=== PATIENT | male | born 1990 | race Hispanic/Latino ===

== ENCOUNTER 2017-04-11 00:06 | Emergency (ER) | payer BC ==
[2017-04-11] MEDS ORDERED: DiphenhydrAMINE 50 mg/ml Inj ONE (00:19)
[2017-04-11] MEDS ORDERED: Albuterol-Ipratrop 3 mg / 0.5 (3 ml) UD ONE (00:20)
[2017-04-11 00:23] VITALS: BMI 25.1
[2017-04-11] MEDS ORDERED: Albuterol-Ipratrop 3 mg / 0.5 (3 ml) UD INH STA ×2 (00:24→00:26)
[2017-04-11] MEDS ORDERED: Sodium Chloride 0.9% 1,000 ML IV STA (00:24)
[2017-04-11] MEDS ORDERED: DiphenhydrAMINE 50 mg/ml Inj IV STA (00:24)
[2017-04-11 00:26] VITALS: TEMP 98.9
[2017-04-11 00:45] LABS: BASO % 0.5 % (0.0-2.0); EOS # 0.1 K/uL (0.0-0.7); EOS % 0.8 % (0.0-4.0); HEMOGLOBIN 15.2 g/dL (12.0-18.0); LYMPH # 3.9 K/uL (1.0-4.3); LYMPH % 38.3 % (20.0-40.0); MEAN CELL VOLUME 90.3 fl (80.0-94.0); MEAN CORPUSCULAR HEMOGLOBIN 30.6 pg (27.0-31.0); MEAN CORPUSCULAR HGB CONC 33.9 g/dL (33.0-37.0); MEAN PLATELET VOLUME 7.2 fl (7.2-11.7); MONO # 0.6 K/uL (0.0-0.8); MONO % 5.6 % (0.0-10.0); NEUT # 5.5 K/uL (1.8-7.0); NEUT % 54.8 % (50.0-75.0); RBC 4.97 Mil/uL (4.40-5.90); RED CELL DISTRIBUTION WIDTH 12.8 % (11.5-14.5); WHITE BLOOD COUNT 10.1 K/uL (4.8-10.8)
[2017-04-11 00:57] LABS: ALB/GLOB RATIO 1.8 (1.0-2.1); ALT/SGPT 39 U/L (21-72); AST/SGOT 28 U/L (17-59); BLOOD UREA NITROGEN 16 mg/dl (9-20); CALCIUM 9.3 mg/dL (8.4-10.2); GFR AFRICAN-AMERICAN > 60; GFR NON-AFRICAN AMERICAN > 60
--- NOTE | 2017-04-11 01:52 | ED PDOC ---
HPI: General Adult Time Seen by Provider: 04/11/17 00:21 Chief Complaint (Nursing): Allergic Reaction Chief Complaint (Provider): Allergic Reaction History Per: Patient History/Exam Limitations: no limitations Onset/Duration Of Symptoms: Hrs (x1) Current Symptoms Are (Timing): Still Present Additional Complaint(s): Max Alex is a 27 year old male who presents to the emergency department with for an evaluation of diffused rash associated with shortness of breath, chest tightness and abdominal pain status post eating a honeycomb 1 hour prior to arrival. Denied any nausea, vomiting, diarrhea, fever or chills. PMD: none provided Past Medical History Reviewed: Historical Data, Nursing Documentation, Vital Signs Vital Signs: Last Vital Signs Temp 98.9 F 04/11/17 00:23 Pulse 117 H 04/11/17 00:23 Resp 22 04/11/17 00:23 BP 137/67 04/11/17 00:23 Pulse Ox 90 L 04/11/17 02:22 - Medical History PMH: No Chronic Diseases - Surgical History Surgical History: Appendectomy - Family History Family History: States: Unknown Family Hx - Social History Current smoker - smoking cessation education provided: No Alcohol: Occasional Drugs: Denies - Home Medications Home Medications: Ambulatory Orders Medication Instructions Recorded Cetirizine HCl [Zyrtec] 10 mg PO QAM #10 capsule 04/11/17 Famotidine [Pepcid] 20 mg PO Q12 #14 tab 04/11/17 Methylprednisolone [Medrol Dosepak] 4 mg PO ASDIR #1 pkg 04/11/17 - Allergies Allergies/Adverse Reactions: Allergies Allergy/AdvReac Type Severity Reaction Status Date / Time No Known Allergies Allergy Verified 04/11/17 00:22 Review of Systems ROS Statement: Except As Marked, All Systems Reviewed And Found Negative Constitutional: Negative for: Fever, Chills Cardiovascular: Positive for: Chest Pain (tightness) Respiratory: Positive for: Shortness of Breath Gastrointestinal: Positive for: Abdominal Pain. Negative for: Nausea, Vomiting , Diarrhea Skin: Positive for: Rash (diffused) Physical Exam - Reviewed Nursing Documentation Reviewed: Yes Vital Signs Reviewed: Yes - Physical Exam Appears: Positive for: Well Head Exam: Positive for: ATRAUMATIC, NORMAL INSPECTION, NORMOCEPHALIC Skin: Positive for: Rash (diffuse erythemic rash to whole body). Negative for: Normal Color Respiratory: Positive for: Wheezing (bilateral expiratory wheezing), Respiratory Distress (mild). Negative for: Normal Breath Sounds Extremity: Positive for: Normal ROM Neurologic/Psych: Positive for: Alert, supervisor production II-XII, Oriented - Laboratory Results Result Diagrams: 04/11/17 00:41 04/11/17 00:41 - ECG O2 Sat by Pulse Oximetry: 90 (RA) Pulse Ox Interpretation: Normal Medical Decision Making Medical Decision Making: Initial Impression: Acute allergic reaction Initial Plan: * EKG * Duoneb 3ml INH * Benadryl 50mg IV * Pepcid 40mg IV * methylprednisolone 125mg IVP * NS 1,000 ml IV per 1,000mls/hr * Peak flow pre/post * Urinalysis * Re-evaluation Time: 0200 Upon provider reevaluation, patient is feeling better, is medically stable and requires no further treatment in the ED at this time. Patient will be discharged home with Rx. Counseling was provided and all questions were answered regarding diagnosis and need for follow up with PCP. There is agreement to discharge plan. Return if symptoms persist or worsen. Clinical Impression: Allergic reaction Scribe Attestation: Documented by Jennifer Castro, acting as a scribe for Db Winn MD. Provider Scribe Attestation: All medical record entries made by the Scribe were at my direction and personally dictated by me. I have reviewed the chart and agree that the record accurately reflects my personal performance of the history, physical exam, medical decision making, and the department course for this patient. I have also personally directed, reviewed, and agree with the discharge instructions and disposition. Disposition - Clinical Impression Clinical Impression: Allergic reaction - Patient ED Disposition Is Patient to be Admitted: No Doctor Will See Patient In The: Office Counseled Patient/Family Regarding: Studies Performed, Diagnosis, Need For Followup - Disposition Referrals: Davonte Tobin MD [Staff Provider] - Disposition: Routine/Home Disposition Time: 02:00 Condition: STABLE Prescriptions: Cetirizine HCl [Zyrtec] 10 mg PO QAM #10 capsule Famotidine [Pepcid] 20 mg PO Q12 #14 tab Methylprednisolone [Medrol Dosepak] 4 mg PO ASDIR #1 pkg Instructions: General Allergic Reaction (ED) Forms: [employer] ([place]) Critical Care Time - Critical Care Note Total Time (in mins): 30 Documented critical care: time excludes all time spent performing seperately billable procedures.
[2017-04-11 05:06] VITALS: BP 124/82; PULSE 78; RESP 16; O2SAT 98
--- NOTE | 2017-04-11 12:01 | CARD ---
APPROVED REPORT EKG Measurement Heart [id number] <Conclusion> Normal sinus rhythm ST elevation, probably due to early repolarization Borderline ECG
== END 2017-04-11 05:06 | disposition home or self-care (01) ==
LOC: H.ER 00:06
DX: T78.40XA Allergy, unspecified, initial encounter (principal); X58.XXXA Exposure to other specified factors, initial encounter
CPT/HCPCS: 80053; 85025; 93005; 94640; 96361; 96374; 96375; 99283; G0480; J1200; J2930; J7040